=== PATIENT | male | born 1930 | race Caucasian/White ===

== ENCOUNTER → 2016-07-18 | Outpatient (CLI) | payer MEDICARE, OTHER ==
[~2016-07-18] MED LIST: ANTIVERT12.5 MG PO; ASMANEX TWIST220 MC1 INH; ASPIRIN LO-DOSE81 MG PO; CALCIUM +D & M1 EACH PO; CPAP INH; DELTASONE5 MG PO; FLOMAX0.4 MG PO; GARLIC OIL3 MG PO; GONAK OPHTH; ISOPTO TEARS15 ML OPHTH; ISOSORBIDE MONO30 MG PO; K-TAB 10MEQ10 MEQ PO; LAMISIL AT30 GM TOP; LASIX40 MG PO; LEVEMIR FL100 UNIT/1 SUB-Q; LEVOTHROID (S137 MCG PO; LIPITOR40 MG PO; LOPRESSOR25 MG PO; MAXITROL EYE O3.5 GM OPHTH; METAMUCIL SUGA283 GM PO; MOMETASONE INH; NEURONTIN300 MG PO; NITROSTAT0.4 MG SL; NORCO 5-325 TA1 EACH PO; NORFLEX100 MG PO; NOVOLOG FL100 UNIT/1 SUB-Q; OMEGA 3-6-9 11200 MG PO; OXYGEN M-15 INH; PLAVIX75 MG PO; PROAIR RESPICL90 MCG INH; PROSCAR5 MG PO; RANEXA ER500 MG PO; SPIRIVA18 MCG INH; SULINDAC150 MG PO; THERAGRAN-M1 TAB PO; ZYRTEC10 MG PO; [UNRECOGNIZED DRUG - OTHER] PO
[2016-07-18 17:16] LABS: ALBUMIN 3.2 gm/dL (3.5-5.0); ANION GAP 9.8 (10.0-19.0); CREATININE 1.5 mg/dL (0.6-1.3); POTASSIUM 3.8 mMol/L (3.7-5.1); TOTAL BILIRUBIN 0.6 mg/dL (0.0-1.5); TOTAL PROTEIN 6.7 g/dL (6.0-8.4)
== END | disposition disaster alternative care site (69) ==
LOC: LNHI 16:29
PROVIDERS: Surgery Vascular Surgery
DX: Z01.812 Encounter for preprocedural laboratory examination (principal); I73.9 Peripheral vascular disease, unspecified

== ENCOUNTER 2016-08-09 07:13 | Outpatient (CLI) | payer MEDICARE, OTHER ==
[~2016-08-09] VITALS: Ht 170.2 cm; Wt 107.1 kg
--- NOTE | ~2016-08-09 | OR ---
PATIENT'S NAME: CONSTANTIN LOPEZ [facility] AGE: 85 Y [address] ROOM: [place] [address] LOCATION: GPCU ADMIT DATE: 08/09/2016 OR/Procedure Report DISCHARGE DATE: 08/09/2016 FAMILY PHYSICIAN: Thomas Leon PA-C ATTENDING PHYSICIAN: Won Santiago SURGEON: Won Santiago MD DINKEY ENGINE FIRER: DATE OF PROCEDURE: 08/09/2016 PREOPERATIVE DIAGNOSIS: Right lower extremity claudication. POSTOPERATIVE DIAGNOSIS: Right lower extremity claudication. PROCEDURES: Aortogram with diagnostic angiogram of the right lower extremity. CHEMICAL PROCESSING TECHNICIAN: Funeral Director staff. ANESTHESIA: MAC local. ESTIMATED BLOOD LOSS: 5 mL. OPERATIVE FINDINGS: No arterial occlusion seen in either the right or left lower extremity. DESCRIPTION OF PROCEDURE: The patient was brought to the filling station laborer, placed supine on the filling station laborer table, prepped and draped in a sterile manner. Preoperative time-out was performed. We gained access via the left groin using ultrasound guidance using a micropuncture needle, followed by a micropuncture wire, followed by a micropuncture sheath. We exchanged using Seldinger technique for a 5-[place]vian short sheath. We went up in the aorta with an 0.035 Glidewire as well as Omni Flush catheter and performed series of angiograms of the aorta. The aorta and renal vessels as well as the common and internal and external iliac arteries were all widely patent. We went up over the aortic bifurcation, performed series of angiograms of the right lower extremity by parking our catheter in the common femoral on the right. The SFA and profunda were widely patent, so was the popliteal. The patient had a normal 3-vessel runoff. Preoperative duplex imaging suggested he would have an SFA stenosis, but we did not find this. Removed the Omni Flush catheter and performed an angiogram through the sheath from the left groin which showed normal vessels in the left lower extremity as well. I am not sure exactly what is causing this patient's claudication-type symptoms, but it does not appear to be arterial in nature. We removed the sheath, we held pressure for 10 minutes. The patient tolerated the procedure well and transferred to recovery room and home later that day. PATIENT'S NAME: CONSTANTIN LOPEZ [facility] AGE: 85 Y [address] ROOM: [address] [address] LOCATION: GPCU ADMIT DATE: 08/09/2016 OR/Procedure Report DISCHARGE DATE: 08/09/2016 FAMILY PHYSICIAN: Thomas Leon PA-C ATTENDING PHYSICIAN: Won Santiago MD TONIA ALCANTARA/modl /[id number] d: 08/09/161951 t: 08/10/16 1511, OPERATIVE SUMMARY
== END 2016-08-09 13:55 | disposition disaster alternative care site (69) ==
LOC: GPOC 07:13 → GPCU 07:13 → GPOC 10:00
PROC: B40DYZZ Plain Radiography of Aorta and Bilateral Lower Extremity Arteries using Other Contrast (ICD-10-PCS; principal; 2016-08-09)
DX: I73.9 Peripheral vascular disease, unspecified (principal); I12.9 Hypertensive chronic kidney disease with stage 1 through stage 4 chronic kidney disease, or unspecified chronic kidney disease; N18.9 Chronic kidney disease, unspecified; E11.9 Type 2 diabetes mellitus without complications; E66.9 Obesity, unspecified; E03.9 Hypothyroidism, unspecified; J44.9 Chronic obstructive pulmonary disease, unspecified
CPT/HCPCS: C1769; C1887; J0690; J1644; J7030